=== PATIENT | male | born 1975 | race Caucasian/White ===

== ENCOUNTER 2023-09-08 18:13 | Observation (INO) ==
[2023-09-08] MEDS: PANTOPRAZOLE 40 MG VIAL IV ONE (19:01)
[2023-09-08] MEDS: 0.9 % SODIUM CHLORIDE 1,000 ML IV ONE (19:01)
[2023-09-08 19:09] LABS: Basophils # (Auto) 0.05 K/mcL (0.00-0.30); Basophils % (Auto) 0.6 % (0.0-2.0); Eosinophils # (Auto) 0.22 K/mcL (0.00-0.70); Eosinophils % (Auto) 2.7 % (0.0-7.0); Hematocrit 39.1 % (40.1-51.0); Hemoglobin 13.7 g/dL (13.7-17.5); Lymphocytes % (Auto) 29.4 % (15.5-49.0); Mean Cell Volume 89.1 fL (80.0-100.0); Mean Platelet Volume 10.6 fL (8.8-12.5); Monocytes # (Auto) 0.78 K/mcL (0.10-0.90); Monocytes % (Auto) 9.6 % (1.0-12.0); Neutrophils % (Auto) 57.5 % (38.0-78.0); Platelet Count 205 K/mcL (140-440); RBC 4.39 M/mcL (4.63-6.08); Red Cell Distribution Width 11.9 % (11.5-14.5); WBC 8.2 K/mcL (4.5-11.0)
[2023-09-08 19:28] LABS: ALT/SGPT 14 U/L (<40); AST/SGOT 15 U/L (<40); Albumin 4.1 gm/dL (3.2-5.2); Albumin/Globulin Ratio 1.8 (1.0-2.3); Alkaline Phosphatase 52 U/L (39-117); Bilirubin,Total 0.4 mg/dL (0.1-1.0); Blood Urea Nitrogen 30 mg/dL (6-20); Calcium 9.3 mg/dL (8.6-10.4); Carbon Dioxide 24 mmol/L (22-30); Chloride 103 mmol/L (96-108); Globulin 2.3 gm/dL (2.2-3.7); Glomerular Filtration Rate 112; Glucose 137 mg/dL (70-105)
[2023-09-08 19:38] LABS: Prothrombin Time 13.8 sec (11.9-14.5)
[2023-09-08] MEDS ORDERED: HYDROmorphone 0.5 MG/0.5 ML SYRINGE IV PRN (20:41)
[2023-09-08] MEDS ORDERED: ONDANSETRON 4 MG/2 ML VIAL IV PRN (20:41)
[2023-09-08] MEDS: PANTOPRAZOLE 80 MG in 0.9 % SODIUM CHLORIDE 100 ML IV SCH (21:57)
[2023-09-08] MEDS: 0.9 % SODIUM CHLORIDE 1,000 ML IV SCH (22:41)
[2023-09-09] MEDS: ACETAMINOPHEN IV ONE (01:15)
[2023-09-09 06:48] LABS: Basophils # (Auto) 0.04 K/mcL (0.00-0.30); Basophils % (Auto) 0.6 % (0.0-2.0); Eosinophils # (Auto) 0.25 K/mcL (0.00-0.70); Hematocrit 31.4 % (40.1-51.0); Hemoglobin 10.5 g/dL (13.7-17.5); Lymphocytes % (Auto) 38.5 % (15.5-49.0); Mean Cell Volume 91.3 fL (80.0-100.0); Mean Corpuscular HGB Conc 33.4 g/dL (31.0-36.0); Mean Platelet Volume 10.8 fL (8.8-12.5); Monocytes # (Auto) 0.61 K/mcL (0.10-0.90); Monocytes % (Auto) 9.8 % (1.0-12.0); Neutrophils % (Auto) 46.9 % (38.0-78.0); Platelet Count 158 K/mcL (140-440); RBC 3.44 M/mcL (4.63-6.08); Red Cell Distribution Width 12.4 % (11.5-14.5); WBC 6.2 K/mcL (4.5-11.0)
[2023-09-09] MEDS ORDERED: ONDANSETRON 4 MG/2 ML VIAL ONE (10:04)
[2023-09-09] MEDS ORDERED: PROPOFOL 200 MG/20 ML VIAL IV ONE (10:04)
[2023-09-09] MEDS ORDERED: ROCURONIUM 10 MG/ML ML IV ONE (10:04)
[2023-09-09] MEDS ORDERED: fentaNYL 100 MCG/2 ML VIAL ONE (10:04)
[2023-09-09] MEDS ORDERED: SUGAMMADEX SODIUM 200 MG/2 ML VIAL IV ONE (10:35)
[2023-09-09] MEDS: SUCRALFATE 1 GM/10 ML ORAL.SUSP PO SCH (11:59)
[2023-09-09 14:34] LABS: Basophils # (Auto) 0.04 K/mcL (0.00-0.30); Basophils % (Auto) 0.7 % (0.0-2.0); Eosinophils # (Auto) 0.18 K/mcL (0.00-0.70); Eosinophils % (Auto) 3.2 % (0.0-7.0); Hematocrit 29.6 % (40.1-51.0); Hemoglobin 9.8 g/dL (13.7-17.5); Lymphocytes % (Auto) 30.1 % (15.5-49.0); Mean Cell Volume 92.5 fL (80.0-100.0); Mean Corpuscular HGB Conc 33.1 g/dL (31.0-36.0); Mean Platelet Volume 10.3 fL (8.8-12.5); Monocytes # (Auto) 0.48 K/mcL (0.10-0.90); Monocytes % (Auto) 8.5 % (1.0-12.0); Neutrophils % (Auto) 57.5 % (38.0-78.0); Platelet Count 152 K/mcL (140-440); Red Cell Distribution Width 12.2 % (11.5-14.5); WBC 5.7 K/mcL (4.5-11.0)
[2023-09-09 18:05] LABS: Basophils # (Auto) 0.05 K/mcL (0.00-0.30); Basophils % (Auto) 0.8 % (0.0-2.0); Eosinophils # (Auto) 0.19 K/mcL (0.00-0.70); Hematocrit 31.2 % (40.1-51.0); Hemoglobin 10.4 g/dL (13.7-17.5); Lymphocytes # (Auto) 1.61 K/mcL (1.50-4.80); Lymphocytes % (Auto) 25.4 % (15.5-49.0); Mean Cell Volume 92.3 fL (80.0-100.0); Mean Corpuscular HGB Conc 33.3 g/dL (31.0-36.0); Mean Platelet Volume 10.3 fL (8.8-12.5); Monocytes # (Auto) 0.47 K/mcL (0.10-0.90); Monocytes % (Auto) 7.4 % (1.0-12.0); Neutrophils % (Auto) 63.2 % (38.0-78.0); Platelet Count 160 K/mcL (140-440); RBC 3.38 M/mcL (4.63-6.08); Red Cell Distribution Width 12.2 % (11.5-14.5); WBC 6.3 K/mcL (4.5-11.0)
[2023-09-09 22:40] LABS: Basophils # (Auto) 0.04 K/mcL (0.00-0.30); Basophils % (Auto) 0.7 % (0.0-2.0); Eosinophils # (Auto) 0.25 K/mcL (0.00-0.70); Eosinophils % (Auto) 4.2 % (0.0-7.0); Hematocrit 29.9 % (40.1-51.0); Lymphocytes # (Auto) 1.87 K/mcL (1.50-4.80); Lymphocytes % (Auto) 31.7 % (15.5-49.0); Mean Cell Volume 92.3 fL (80.0-100.0); Mean Corpuscular HGB Conc 33.4 g/dL (31.0-36.0); Mean Platelet Volume 10.7 fL (8.8-12.5); Monocytes # (Auto) 0.53 K/mcL (0.10-0.90); Neutrophils % (Auto) 54.2 % (38.0-78.0); Platelet Count 153 K/mcL (140-440); RBC 3.24 M/mcL (4.63-6.08); Red Cell Distribution Width 12.3 % (11.5-14.5); WBC 5.9 K/mcL (4.5-11.0)
[2023-09-10 08:43] LABS: Basophils # (Auto) 0.05 K/mcL (0.00-0.30); Basophils % (Auto) 0.9 % (0.0-2.0); Eosinophils # (Auto) 0.27 K/mcL (0.00-0.70); Eosinophils % (Auto) 4.9 % (0.0-7.0); Hematocrit 29.4 % (40.1-51.0); Hemoglobin 9.8 g/dL (13.7-17.5); Lymphocytes # (Auto) 2.01 K/mcL (1.50-4.80); Lymphocytes % (Auto) 36.4 % (15.5-49.0); Mean Cell Volume 92.7 fL (80.0-100.0); Mean Corpuscular HGB Conc 33.3 g/dL (31.0-36.0); Mean Platelet Volume 10.9 fL (8.8-12.5); Monocytes # (Auto) 0.44 K/mcL (0.10-0.90); Neutrophils % (Auto) 49.6 % (38.0-78.0); Platelet Count 151 K/mcL (140-440); RBC 3.17 M/mcL (4.63-6.08); Red Cell Distribution Width 12.3 % (11.5-14.5); WBC 5.5 K/mcL (4.5-11.0)
== END 2023-09-10 11:43 | disposition home or self-care (01) ==
LOC: MEDSUR 18:13 → ED 18:13 → MEDSUR 22:13
PROVIDERS: ADMIT Family Medicine Adult Medicine; ATTEND Family Medicine Adult Medicine